=== PATIENT | female | born 1955 | race Two or more races ===

== ENCOUNTER 2025-02-27 08:17 | Outpatient (REF) | payer MEDICARE, SELFPAY ==
[2025-02-27 13:31] LABS: MANUAL DIFF FLAG NO
[2025-02-27 13:37] LABS: Hematocrit 40.8 % (37.0-47.0); Hemoglobin 13.1 g/dl (12.0-16.0); Imm Gran Abs Auto 0.03 X10*3/uL (0.00-0.03); Imm Gran Pct Auto 0.3 % (0.0-0.4); Lymphocytes Absolute Auto 3.0 X10*3/uL (1.2-4.9); Mean Corpuscular HGB Conc 32.1 g/dl (31.0-35.0); Mean Corpuscular Hemoglobin 27.2 pg (27.0-33.0); Mean Corpuscular Volume 84.8 fL (80.0-98.0); NRBC Abs Auto 0.000 X10*3/uL (0.0-0.012); NRBC Pct Auto 0.0 /100WBC (0.0-0.2); Platelet Count 273 X10*3/uL (160-400); Red Blood Count 4.81 X10*6/uL (4.20-5.50); White Blood Count 8.6 X10*3/uL (4.8-10.8)
[2025-02-27 13:55] LABS: Alanine Aminotransferase 38 U/L (0-31); Albumin Level 4.3 g/dL (3.5-5.0); Alkaline Phosphatase 108 U/L (39-117); Anion Gap 11 (12-20); Aspartate Amino Transferase 33 U/L (5-31); Blood Urea Nitrogen 11 mg/dL (9-16); Calcium 9.8 mg/dL (8.4-10.2); Carbon Dioxide 29 mmol/L (22-29); Chloride 108 mmol/L (96-108); Estimated Glomerular Filt Rate > 60; Potassium 4.3 mmol/L (3.3-5.1); Sodium 144 mmol/L (135-145); Total Protein 7.4 g/dL (6.5-8.0)
== END 2025-02-27 08:18 | disposition home or self-care (01) ==
LOC: HO.HKASLDS 08:17
PROVIDERS: PCP Internal Medicine; Visit Provider Nurse Practitioner Family
DX: G43.709 Chronic migraine without aura, not intractable, without status migrainosus (principal); D72.829 Elevated white blood cell count, unspecified; I61.9 Nontraumatic intracerebral hemorrhage, unspecified; R90.82 White matter disease, unspecified; F41.8 Other specified anxiety disorders; Z79.899 Other long term (current) drug therapy
CPT/HCPCS: 36415; 80053; 85025; 99202

== ENCOUNTER 2025-02-27 08:17 | Outpatient (AMB) | payer MEDICARE, SELFPAY ==
[2025-02-27 08:21] VITALS: BP 118/78; PULSE 77; O2SAT 95; BMI 30.1
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
--- OUTSIDE RECORDS SUMMARY | 2025-02-27 08:23 | XMS_ITS | Data Portability ---
Author Organization [facility], [address] Address [address] [place] [address] Care Team Providers Care Refrigeration Insulator Name Role Phone ISMAEL MONTESINOS Primary Care Provider Assessment No assessment recorded. Plan of Treatment Reminders Order Date Submit Date Provider Last Modified By Organization Details Last Modified Time Details Appointments None recorded. Lab None recorded. Referral None recorded. Procedures None recorded. Surgeries None recorded. Imaging None recorded. Medication Orders benzonatate 100 mg capsule 2022 023 [facility]/Pharmacy #[id number], [address] [place], [address], 3 11:00:37 prednisone 10 mg tablet 2022 023 [facility]/Pharmacy #[id number], [address] [place], [address], 3 11:34:38 Patient TargetsNo targets recorded. Patient Instructions Encounter Date Encounter Id Patient Instructions Last Modified By Organization Details Last Modified Time 08/25/2022 [id number] eustachian tube problems: care instructions [email or web address] Not available 08/25/2022 11:34:34 Based on your physical exam and presentation, you are being diagnosed with Eustachian Tube Dysfunction. This occurs when fluid/mucous or swelling closes off the tubes that help the ears equalize the pressure. The following are my recommendations to help with these symptoms and get this condition to resolve: 1. Saline Nasal [place] 2. Antihistamines like Claritin, Zyrtec, Olga Lidia, or benadryl 3. Tylenol for discomfort and help with the inflammation. 4. Heating pad or warm rice back to help with the discomfort 5. You can try sudafed, but I would not take this more than 5 days. This may overly dry out your throat and chest and cause symptoms. Unfortunately this condition may last 1-2 months, but usually resolve on its own. I am going to prescribe some medications to help resolve this faster. You were prescribed Prednisone - Here is some general Information regarding this medication. 1. Make sure you take with Food 2. Do not take right before bedtime -this should be taken during the day because it may make you a little more wired. May keep you from sleeping. 3. Prednisone will increase glucose -so if you are a diabetic then you will need to monitor your glucose closely. Please d/c if glucose goes above 300. 4. Do not take this medication with Ibuprofen If this does not improve in 2-3 months - an ENT would be the appropriate next step. Sometimes people will require Tubes to be placed temporarily. Thank you for using [facility], if you have any questions or concerns please do not hesitate to call or reach out to us. Not available 08/25/2022 11:34:33 Reason for Referral None Reported. Problems Name Problem SNOMED Code Status Onset Date Resolution Date Notes Provider Name and Address Organization Details Recorded Time Cerebrovascula r accident 069620780 Active 2022 SALVADOR faith PA - [facility] 3 11:16:31 Gastroesophage al reflux disease 642704946 Active 2022 SALVADOR faith PA - [facility] 3 11:16:43 Problem Notes None recorded. Procedures Surgical History Date Name Laterality Status Provider Name and Address Organization Details Recorded Time procedure on ovary completed SALVADOR HILTON PA - [facility] 08/25/2022 11:17:06 Imaging Results None recorded. Procedure Notes None recorded. Medical Equipment None Reported. Allergies No known drug allergies Medications Name Sig Start Date Stop Date Status Note LastModified by Organization Details LastModified Time atorvastatin 40 mg tablet TAKE 1 TABLET BY MOUTH EVERY DAY active Not Available Not Available No t Available prednisone 10 mg tablet PLEASE SEE ATTACHED FOR DETAILED DIRECTIONS active Not Available Not Available N ot Available ketorolac 0.5 % eye drops PLACE 1 DROP INTO AFFECTED EYE THREE TIMES A DAY STARTING 2 DAYS PRIOR SURGERY active Not Available Not Available No t Available famotidine 20 mg tablet active Not Available Not Available Not Available meclizine 25 mg tablet TAKE 1 TABLET BY MOUTH 3 TIMES DAILY NEEDED FOR DIZZINESS FOR UP TO 180 DAYS. active Not Available Not Available No t Available benzonatate 100 mg capsule TAKE 1 CAPSULE BY MOUTH THREE TIMES A DAY FOR 7 DAYS active Not Available Not Available N ot Available Gas Relief (simethicone ) 80 mg chewable tablet TAKE 1 TABLET BY MOUTH EVERY 8 HOURS NEEDED FOR FLATULENCE. active Not Available Not Available Not Available omeprazole 20 mg capsule,tyrone yed release TAKE 1 CAPSULE BY MOUTH EVERY DAY active Not Available Not Available No t Available fluoxetine 20 mg capsule TAKE 1 CAPSULE BY MOUTH EVERY DAY active Not Available Not Available No t Available mometasone 0.1 % topical cream active Not Available Not Available Not Available omeprazole active Not Available Not Av ailable Not Available Botox active Not Available Not Availa ble Not Available ProAir HFA 90 mcg/actuatio n aerosol inhaler INHALE 2 PUFFS INTO THE LUNGS EVERY 4 HOURS NEEDED FOR COUGH OR WHEEZING. active Not Available Not Available No t Available levocetirizi ne 5 mg tablet TAKE 1 TABLET BY MOUTH EVERY EVENING active Not Available Not Available No t Available Botox 200 unit injection active Not Available Not Available No t Available Olga Lidia Allergy active Not Available Not Available Not Available aspirin 81 mg capsule Take 1 capsule every day by oral route. active Not Available Not Available No t Available Vitals Date Recorded Body height Body mass index (BMI) Body weight Pain severity - 0-10 verbal numeric rating [Score] - Reported Body temperature Respiratory rate Heart rate Oxygen saturation Oxygen saturation in Arterial blood by Pulse oximetry Systolic And Diastolic Provider Name and Address Organization Details Last Updated DateTime 3 152.4 cm 26.4 kg/m2 59842.9 7 g 10 97 [degF] 16 /min 73 /min 97 % 97 % 140/82 mm[Hg] SALVADOR HILTON PA - [facility] 3 11:21:15 Date Recorded Body height Body mass index (BMI) Body weight Oxygen saturation Oxygen saturation in Arterial blood by Pulse oximetry Pain severity - 0-10 verbal numeric rating [Score] - Reported Heart rate Respiratory rate Body temperature Systolic And Diastolic Provider Name and Address Organization Details Last Updated DateTime 3 152.4 cm 26.4 kg/m2 74257.9 7 g 98 % 98 % 0 78 /min 18 /min 97.2 [degF] 117/69 mm[Hg] MUSA SAHU RA PA - [facility] 3 10:42:55 Social History Question Answer Notes LastModified by Organizat ion Details LastModified Time Tobacco Smoking Status Former Smoker SALVADOR DRINKWINE null, PA - [facility] 08/25/2022 11:18:22 When Did You Quit Smoking? 11-15yearssi chidi shaw Information not available 08/25/2022 Have You Recently Traveled Abroad? No Information not available 08/25/2022 Sex: Unknown Functional Status Question Answer Note LastModified by Organizat ion Details LastModified Time Do you use any illicit or recreational drugs? No Information not available 08/25/2022 Do you or have you ever used any other forms of tobacco or nicotine? No Information not available 08/25/2022 What is your level of alcohol consumption? None Information not available 08/25/2022 Mental Status None recorded. Family History Relationship Description Onset Age of this Age Resolved Age Notes LastModified by Organization Details LastModified Time Sister Malignant neoplastic disease [email or web address] Not available 08/25 11:17:59 Maternal Grandfather Malignant neoplastic disease [email or web address] Not available 08/25 11:17:59 Maternal Grandmother Malignant neoplastic disease [email or web address] Not available 08/25 11:17:59 Maternal Aunt Malignant neoplastic disease [email or web address] Not available 08/25 11:17:59 Medical History No medical history recorded. Gynecological HistoryNo gynecological history recorded. Obstetrics History GPAL:G 0 P 0 0 0 0 Immunizations Vaccine Type Date Status Note Provider Nam e and Address Organization Details Recorded Time Influenza, split virus, trivalent, preservative 0 completed SALVADOR DRINKWINE null, PA - [facility] 08/25/2022 11:18:31 Influenza, split virus, trivalent, preservative 9 completed SALVADOR DRINKWINE null, PA - [facility] 08/25/2022 11:18:31 Influenza, split virus, trivalent, preservative 3 completed SALVADOR DRINKWINE null, PA - [facility] 08/25/2022 11:18:31 Influenza, split virus, quadrivalent, PF 8 completed SALVADOR DRINKWINE null, PA - [facility] 08/25/2022 11:18:31 zoster recombinant 8 completed SALVADOR DRINKWINE null, PA - [facility] 08/25/2022 11:18:31 COVID-19, mRNA, LNP-S, PF, 30 mcg/0.3 mL dose 1 completed SALVADOR DRINKWINE null, PA - [facility] 08/25/2022 11:18:31 Tdap 1 completed SALVADOR DRINKWINE null, PA - [facility] 08/25/2022 11:18:31 Influenza, split virus, quadrivalent, PF 1 completed SALVADOR DRINKWINE null, PA - [facility] 08/25/2022 11:18:31 Influenza, split virus, trivalent, preservative 3 completed SALVADOR DRINKWINE null, PA - [facility] 08/25/2022 11:18:31 COVID-19, mRNA, LNP-S, PF, 30 mcg/0.3 mL dose 1 completed SALVADOR DRINKWINE null, PA - [facility] 08/25/2022 11:18:31 Influenza, split virus, trivalent, PF 6 completed SALVADOR DRINKWINE null, PA - [facility] 08/25/2022 11:18:31 Influenza, MDCK, quadrivalent, PF 0 completed SALVADOR DRINKWINE null, PA - [facility] 08/25/2022 11:18:31 Influenza, MDCK, quadrivalent, PF 8 completed SALVADOR DRINKWINE null, PA - [facility] 08/25/2022 11:18:31 Influenza, split virus, trivalent, preservative 1 completed SALVADOR DRINKWINE null, PA - [facility] 08/25/2022 11:18:31 Influenza, MDCK, quadrivalent, PF 9 completed SALVADOR DRINKWINE null, PA - [facility] 08/25/2022 11:18:31 Influenza, split virus, quadrivalent, PF 2 completed SALVADOR DRINKWINE null, PA - [facility] 08/25/2022 11:18:31 Influenza, split virus, trivalent, preservative 4 completed SALVADOR DRINKWINE null, PA - [facility] 08/25/2022 11:18:31 COVID-19, mRNA, LNP-S, PF, 30 mcg/0.3 mL dose 1 completed SALVADOR DRINKWINE null, PA - [facility] 08/25/2022 11:18:31 pneumococcal polysaccharide PPV23 8 completed SALVADOR DRINKWINE null, PA - [facility] 08/25/2022 11:18:31 Past Encounters Encounter ID Performer Location Encounter Start Date Encounter Closed Date Diagnosis/Indication Diagnosis SNOMED-CT Code Diagnosis ICD10 Code Diagnosis Note [id number] [address] [place] [address] 09/04/2019 14:33:09 09/04/2019 15:15:10 [id number] [address] [place] [address] 07/03/2020 14:57:49 07/03/2020 16:41:30 [id number] [address] [place] [address] 06/08/2017 11:08:28 06/08/2017 11:39:08 [id number] [address] [facility] [address] [place] [address] 10/01/2015 09:58:37 10/01/2015 10:22:59 [id number] [place] [address] 04/11/2017 15:17:29 04/11/2017 15:56:16 [id number] [facility] [address] [place] [address] 08/25/2022 11:01:38 08/25/2022 11:46:56 Dysfunction of right eustachian tube 9817388338 091751 H69.91 Start your Olga Lidia againStart you Nasal [place] again [id number] OMAR GORDON MD [address] [place] [address] 08/29/2022 09:49:46 08/29/2022 11:04:56 Persistent cough 759139085 R05.3 Pruritic rash 39190318 L 28.2 Benadryl Gel:Apply to affected area 3 times a day as needed for itching for 3-5 days. Health Concerns Section Related Observation LastModified by Organization Detai ls LastModified Time None Recorded Concern Status LastModified by Organization Details LastModified Time None Recorded Advance Directives Directive None Recorded Payers Insurance Date Sequence Insurance Name Policy Number Policy Ramirez Covered Member ID Ramirez Member ID Guarantor Name 08/29/2022 1 [facility] NET PLAN (MEDICAID HMO) [facility] Summer Hobbs [id number] Summer Hobbs 08/29/2022 2 [place] [facility] Summer Hobbs [id number] Summer Hobbs OBGyn Episode No OBEpisode recorded.
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
--- OUTSIDE RECORDS SUMMARY | 2025-02-27 08:23 | XMS_ITS | Clinical Summary ---
Author Organization [facility] Address [address] [place] [address] Care Team Providers Care Drapery Installer Name Role Phone KevinAsya mcmanus DDTammy Primary Care Provider Source Comments PLEASE NOTE, if this patient is a minor, it may be UNLAWFUL to discuss sensitive information that is contained in these records (such as FAMILY PLANNING, MENTAL HEALTH or SUBSTANCE ABUSE) with the minor patient's parent or other person without the patient's specific authorization.[facility] Medications No known medications Active Problems No known active problems Social History Tobacco Use Types Packs/Day Years Used Date Smoking Tobacco: Never Assessed Social Connections Answer Date Recorded Connectedness 0 04/21/2024 Financial Resource Strain Answer Date R ecorded Financial Resource Strain 0 2022 Stress Answer Date Recorded Stress 0 04/08/2023 Physical Activity Answer Date Recorded Physical Activity 0 04/08/2023 Food Insecurity Answer Date Recorded Food 0 04/27/2024 Transportation Needs Answer Date Record ed Transportation 0 04/08/2023 Housing Stability Answer Date Recorded Housing 0 04/08/2023 Safety and Environment Answer Date Chris rded Safety 0 04/08/2023 Utilities Answer Date Recorded Utilities 0 04/08/2023 Employment Answer Date Recorded Stress 0 04/21/2024 Comments Unknown Sex and Gender Information Value Date Recorded Sex Assigned at Not on file Legal Sex Female 10:23 AM PST Gender Identity Not on file Sexual Orientation Not on file Last Filed Vital Signs Vital Sign Reading Time Taken Comments Blood Pressure 125/90 05/11/2024 9:36 AM EDT Pulse 87 05/11/2024 9:36 AM EDT Temperature - - Respiratory Rate - - Oxygen Saturation - - Inhaled Oxygen Concentration - - Weight - - Height - - Body Mass Index - - Plan of Treatment Health Maintenance Due Date Last Done Comments Diabetes Screening 1955 Hepatitis C Screening 1955 Lipid Screening 1957 Tobacco Screening 1955 Breast Cancer Screening (Mammogram) 1997 CT Colonography 2002 Colonoscopy 2002 Colorectal Cancer Screening 2002 FIT/gFOBT 2002 Fecal DNA 2002 Flexible Sigmoidoscopy 2002 Imm-Zoster, Recombinant (2 of 2) 08/26/2018 07/01/20 18 Imm-Pneumococcal 50+ (2 of 2 - PCV) 08/30/2018 08/30/2017 Imm-DTaP/Tdap/Td (2 - Td or Tdap) 05/21/2021 011 Bone Density Screening 2022 Falls Prevention 2022 [id number] ( season) 2024 07/12/2021, 12/09/2020, 11/18/2020 Alcohol and Drug Screen 08/02/2024 Depression Annual Screen 08/02/2024 Imm-Influenza (#1) 2025 05/30/2022, 0 04/03/2021, 05/30/2020, Additional history exists Hypertension Screening (#1) 05/11/2025 Insurance GENERIC - DENTAL Care Teams Drapery Installer Relationship Specialty Start Date End Date Asya Peres DDS [address] [place] [address] PCP - General Dentist 07/08/19
--- OUTSIDE RECORDS SUMMARY | 2025-02-27 08:24 | XMS_ITS ---
Author Name [facility] Organization Unknown Care Team Organization Name Specialty Phone Email Start Date End Da te [facility] 06/09/2022 03/20/2024
--- OUTSIDE RECORDS SUMMARY | 2025-02-27 08:24 | XMS_ITS | Clinical Summary ---
Author Organization [facility] Address [address] [place] [address] Care Team Providers Care Water Purifier Name Role Phone Hiwot Dover MD Primary Care Provider [phone] Allergies No known active allergies Medications Fexofenadine HCl (LYLY ALLERGY) 180 MG Tab 1 TABLET DAILY Active Omeprazole Magnesium (PRILOSEC) 10 MG Pack 2 PACKETS DAILY Active ALBUTEROL SULFATE (PROAIR HFA) 108 (90 BASE) MCG/ACT Aero Soln None Entered Active FLUTICASONE PROPIONATE, NASAL, (FLONASE) 50 MCG/ACT Suspension None Entered Active Gabapentin 300 MG Cap 1 CAPSULE 3 TIMES DAILY Active Active Problems No known active problems Social History Tobacco Use Types Packs/Day Years Used Date Smoking Tobacco: Never Assessed Comments No Sex and Gender Information Value Date Recorded Sex Assigned at Not on file Legal Sex Female 11:10 AM EST Gender Identity Not on file Sexual Orientation Not on file Last Filed Vital Signs Vital Sign Reading Time Taken Comments Blood Pressure 120/79 05/03/2015 10:[address] and[facility] Pulse 75 05/03/2015 10:12 AM EDT Temperature 37 C (98.6 F) 05/03/2015 10:11 AM EDT Respiratory Rate 16 05/03/2015 10:11 AM EDT Oxygen Saturation 100% 05/03/2015 10:10 AM EDT Inhaled Oxygen Concentration - - Weight 55.3 kg (122 lb) 05/03/2015 10:10 AM EDT Height 149.9 cm (4' 11 ) 05/03/2015 10:10 AM EDT Body Mass Index 24.64 05/03/2015 10:10 AM EDT Plan of Treatment Health Maintenance Due Date Last Done Comments Hepatitis C Screening 1955 DTaP/Tdap/Td (1 - Tdap) 10/15/1975 Mammogram/Breast Imaging 1997 Pneumococcal 50+ years (1 of 1 - PCV) 10/15/2007 Zoster (Shingrix) (1 of 2) 10/15/2007 Bone Density 2022 COVID-19 Vaccine (1 - 2023-2 5 season) 2024 Influenza (#1) 2025 RSV (1 - 1-dose 75+ series) 2032 HPV Vaccine (No Doses Required) Completed Hep A Aged Out No longer eligi ble based on patient's age to complete this topic Hep B Aged Out No longer eligi ble based on patient's age to complete this topic Hib Aged Out No longer eligi ble based on patient's age to complete this topic Meningococcal ACWY Aged Out No longer eligible based on patient's age to complete this topic Pap Smear Discontinued Zoster (Zostavax) Discontinued Insurance Care Teams Water Purifier Relationship Specialty Start Date End Date Hiwot Dover MD [address] [place] [id number] PCP - General Internal Medicine 05/03/15
== END 2025-02-27 10:14 | disposition home or self-care (01) ==
LOC: HO.HSMS 08:17
PROVIDERS: PCP Internal Medicine; Visit Provider Nurse Practitioner Family
DX: R51.9 Headache, unspecified (principal); R90.82 White matter disease, unspecified; I61.9 Nontraumatic intracerebral hemorrhage, unspecified; G43.709 Chronic migraine without aura, not intractable, without status migrainosus
CPT/HCPCS: 99204

== ENCOUNTER 2025-05-15 08:01 | Outpatient (AMB) | payer MEDICARE, MEDICAID, SELFPAY ==
--- OUTSIDE RECORDS SUMMARY | 2025-05-15 08:04 | XMS_ITS | Encounter Summary ---
Author Organization [facility] Address [address] [place] [address] Care Team Providers Care Vault Maker Name Role Phone Kathy Fuchs MD Primary Care Provider [phone] Encounter Details Date Type Department Care Team (Late Contact Info) Description 05/04/2025 Results Follow-Up Internal Medicine - [facility] [address] [place] [address] Maribeth Farr MA Social History Tobacco Use Types Packs/Day Years Used Date Smoking Tobacco: Former Cigarettes 1.7 38 0 08/02/1972 - 08/02/2010 Smokeless Tobacco: Never Alcohol Use Standard Drinks/Week Comments No 0 (1 standard drink = 0.6 oz pur e alcohol) Comments No Sex and Gender Information Value Date Recorded Sex Assigned at Female 04/23/2025 10:33 AM EDT Legal Sex Female 2:26 PM EST Gender Identity Not on file Sexual Orientation Not on file documented as of this encounter Plan of Treatment Upcoming Encounters Date Type Department Care Team (Late Contact Info) Description 06/02/2025 8:45 AM EDT Appointment [facility] Scan [address] [place] [phone] 10/02/2025 1:00 PM EST [facility] [address] [place] [address] Kathy Fuchs MD [address] [place] [address] 12/18/2025 11:30 AM EDT [facility] [address] [facility] [place] [phone] Kathy Fuchs MD [address] [facility] [place] documented as of this encounter Visit Diagnoses Not on filedocumented in this encounter Care Teams Vault Maker Relationship Specialty Start Date End Date Kathy Fuchs MD [address] [facility] [place] PCP - General Internal Medicine 03/01/25 documented as of this encounter
--- OUTSIDE RECORDS SUMMARY | 2025-05-15 08:04 | XMS_ITS | Encounter Summary ---
Author Organization [facility] Address [address] [place] [address] Care Team Providers Care Sanitation Inspector Name Role Phone Kathy Fuchs MD Primary Care Provider [phone] Encounter Details Date Type Department Care Team (Late st Contact Info) Description 05/14/2025 Telephone Lung Screening Program - [address] [phone] Leelee Camarena MA Social History Tobacco Use Types Packs/Day [...] on file documented as of this encounter Progress Notes * Leelee Camarena MA - 05/14/2025 3:51 PM EDT Summer Hobbs was contacted by the Lung Cancer Screening Program today to confirm the appointment of their Lung Cancer Screening. The patient is currently scheduled to have their screening on Monday June 02, 2025 at 845 AM at [facility]. Patient confirmed. For all screenings scheduled during the week, the patient will check in at Patient Registration on the first floor of the main hospital. For screenings that take place on the weekend or after 5pm, check-in directly in Radiology. The patient was given the Lung Cancer Screening Program phone number, , to contact if they have any additional questions, concerns or need to reschedule. Patients are encouraged to call our office and reschedule if they are exhibiting any cold-like symptoms, have recently been treated for Pneumonia or Influenza (the flu) or have had another CT of their Chest since their last screening. documented in this encounter Plan of Treatment Upcoming Encounters Date Type Department Care Team (Late st Contact Info) Description 06/02/2025 8:45 AM EDT Appointment [facility] CT Scan [address] [place] [phone] 10/02/2025 1:00 PM EST Office Visit Internal Medicine - [address] [phone] Kathy Fuchs MD [address] [place] [address] 12/18/2025 11:30 AM EDT [facility] [address] [place] [address] Kathy Fuchs MD [address] [place] [address] documented as of this encounter Visit Diagnoses Not on filedocumented in this encounter Care Teams Sanitation Inspector Relationship Specialty Start Date End Date Kathy Fuchs MD [address] [place], [place] [address] PCP - General Internal Medicine 03/01/25 documented as of this encounter
--- OUTSIDE RECORDS SUMMARY | 2025-05-15 08:04 | XMS_ITS | Clinical Summary ---
Author Organization [facility] Address [address] [place] [address] Care Team Providers Care Sales Officer Name Role Phone KevinAsya mcmanus ADOLFO Primary Care Provider Source Comments PLEASE NOTE, [...] Bone Density Screening 2022 Falls Prevention 2022 Alcohol and Drug Screen 08/02/2024 Depression Annual Screen 08/02/2024 [id number] ( season) 2025 07/12/2021, 12/09/2020, 11/18/2020 Imm-Influenza (#1) 2025 05/30/2022, 0 04/03/2021, 05/30/2020, Additional history exists Hypertension Screening (#1) 05/11/2025 Insurance GENERIC - DENTAL Care Teams Sales Officer Relationship Specialty Start Date End Date Asya Peres DDS [address] [place] [address] PCP - General Dentist 07/08/19
--- OUTSIDE RECORDS SUMMARY | 2025-05-15 08:04 | XMS_ITS | Clinical Summary ---
Author Organization [facility] Address [address] [place] [address] Care Team Providers Care Docket Specialist Name Role Phone Kathy Fuchs MD Primary Care Provider [phone] Allergies Active Allergy Reactions Criticality Noted Date Comments Cat Dander 06/20/2009 Milk 06/20/2009 Medications albuterol HFA (PROAIR HFA ; PROVENTIL HFA ; VENTOLIN HFA) 90 mcg/actuation inhaler Inhale 2 Puffs into the lungs every 4 hours as needed for Cough or Wheezing. 12/27/19 22 Active bisacodyL (DULCOLAX) 5 mg EC tablet Take 2 tabs at 6pm as directed. 10/08/19 24 Active levocetirizine (XYZAL) 5 mg tablet Take 1 tablet (5 mg total) by mouth 1 (one) time each day in the evening. 03/16/20 23 Active meclizine (ANTIVERT) 25 mg tablet Take 1 tablet (25 mg total) by mouth 3 (three) times a day if needed for dizziness. 03/30/20 24 Active ondansetron ODT (ZOFRAN-ODT) 4 mg disintegrating tablet Take 1 tablet (4 mg total) by mouth. 05/20/20 23 Active polyethylene glycol (GoLYTELY) 236-22.74-6.74 -5.86 gram solution Take 4,000 mL by mouth. 10/08/19 24 Active atorvastatin (LIPITOR) 40 mg tablet TAKE 1 TABLET BY MOUTH EVERY DAY 90 tablet 1 01/27/20 25 Active aspirin-acetamino phen-caffeine (EXCEDRIN MIGRAINE) 250-250-65 mg per tablet Take 1 tablet by mouth 2 (two) times a day. 180 tablet 3 04/03/20 25 Active omeprazole (PriLOSEC) [address] capsuleIndication s:Gastro-esophage al reflux disease without esophagitis Take 1 capsule (40 mg total) by mouth 1 (one) time each day. 90 capsule 1 04/20/20 25 Active riboflavin (VITAMIN B2) 400 mg tablet TAKE 1 TABLET BY MOUTH 1 TIME EACH DAY. 90 tablet 05/08/20 25 Active omeprazole (PriLOSEC) [address] capsuleIndication s:Gastro-esophage al reflux disease without esophagitis TAKE 1 CAPSULE BY MOUTH EVERY DAY 30 capsule 03/01/20 25 025 Discontinued(Re order) riboflavin (VITAMIN B2) 400 mg tablet Take 1 tablet (400 mg total) by mouth 1 (one) time each day. 03/20/20 25 025 Discontinued(Re order) riboflavin (VITAMIN B2) 400 mg tablet Take 1 tablet (400 mg total) by mouth 1 (one) time each day. 90 tablet 04/20/20 25 025 Discontinued Active Problems Problem Noted Date Diagnosed Date Environmental and seasonal allergies 04/03/2025 Other headache syndrome 04/03/2025 Brain ischemia 04/03/2025 Mixed stress and urge urinary incontinence 12/10 [...] colonoscopy dr de la torre tubular adenoma Resolved Problems Problem Noted Date Diagnosed Date Resolved Date History of COVID-19 08/05/2021 04/03/20 25 Overview (06/08/2024): Home tested 08/05/21 Encounters Date Type Department Care Team Description 05/14/2025 Telephone Lung Screening Program - [place] [address] [address] Leelee Camarena [place] 05/04/2025 Results Follow-Up Internal Medicine - [facility] [address] [place] [address] Maribeth Farr MA 04/26/2025 1:06 PM EDT - 04/26/2025 11:59 PM EDT [facility] [address] [address] Encounter for screening mammogram for malignant neoplasm of breast Discharge Disposition: Home or Self Care 04/03/2025 1:30 PM EDT Office Visit Internal Medicine - [facility] [address] [place] [address] Linda Maddox NP Asthmatic bronchitis , chronic (CMS/HCC V24, CMS/HCC V28) (Primary Dx); Mixed hyperlipidemia; Environmental and seasonal allergies; Gastroesophageal reflux disease without esophagitis; Pulmonary nodules; Depression, unspecified depression type; Mixed stress and urge urinary incontinence; Encounter for screening mammogram for malignant neoplasm of breast; Brain ischemia 03/06/2025 11:31 AM EDT - 03/06/2025 11:59 PM EDT Hospital Encounter [facility] MRI [address] [place] [address] Headache Discharge Disposition: Home or Self Care from Last 3 Months Immunizations Immunization Administration Dates Next Due Influenza Quadravalent, MDCK [...] Surgery Date Site/Laterality Comments OOPHORECTOMY 1998 PROCEDURE: MI OOPHORECTOMY PARTIAL/TOTAL UNI/BI; COMMENT: left ovary removed due to bleeding, not cancer OTHER SURGICAL HISTORY 1993 PROCEDURE: [place] BIOPSY SOFT TISSUE BACK/FLANK DEEP; COMMENT: cyst [...] Name Comments Other: healthy as of 08/2017 Brothnancy Frias No Known Problems Father he left [facility] when pt was a baby Other cancer Maternal Grandfather skin Other: broncitis Maternal Grandmother Stroke Mother Thyroid disease Mother Other cancer Paternal Grandfather throat Lung cancer Sister Cynthia had surgery and survived as of 2018 Obesity Son 1 Gooden born 1976 Asthma Son 2 Federico born 1979 Relation Name Status Comments Brothnancy Frias Alive Father Alive Maternal Grandfather Maternal Grandmother Mother Alive Paternal Grandfather Paternal Grandmother Sister Cynthia Alive Son 1 Gooden Alive Son 2 Federico Alive Social History Tobacco Use Types Packs/Day Years Used Date Smoking Tobacco: Former Cigarettes 1.7 38 0 08/02/1972 - 08/02/2010 Smokeless Tobacco: Never Tobacco Cessation:Counseling Given: Not Answered Alcohol Use Standard Drinks/Week Comments No 0 (1 standard drink = 0.6 oz pur e alcohol) Comments No Sex and Gender Information Value Date Recorded Sex Assigned at Female 04/23/2025 10:33 AM EDT Legal Sex Female 2:26 PM EST Gender Identity Not on file Sexual Orientation Not on file Obstetrics History Para Term AB IAB SAB Ectopic Multiple Livin g Live Births 2 Last Filed Vital Signs Vital Sign Reading Time Taken Comments Blood Pressure 110/70 04/03/2025 2:12 PM EDT Pulse 73 04/03/2025 1:50 PM EDT Temperature 36.4 C (97.6 F) 04/03/2025 1:50 PM EDT Respiratory Rate 16 07/20/2024 2:09 PM EST Oxygen Saturation 94% 07/20/2024 4:41 PM EST Inhaled Oxygen Concentration - - Weight 68.5 kg (151 lb) 04/26/2025 1:33 PM EDT Height 152.4 cm (5') 04/26/2025 1:33 PM EDT Body Mass Index 29.49 04/26/2025 1:33 PM EDT Plan of Treatment Upcoming Encounters Date Type Department Care Team (Late st Contact Info) Description 06/02/2025 8:45 AM EDT Appointment [facility] CT Scan [address] [place] [address] 10/02/2025 1:00 PM EST Office Visit Internal Medicine - [facility] [address] [place] [phone] Kathy Fuchs MD [facility] [place] 12/18/2025 11:30 AM EDT Office Visit Internal Medicine - [facility] [place] [phone] Kathy Fuchs MD [address] [facility] [place] Health Maintenance Due Date Last Done Comments Cervical Cancer Screening: HPV 03/23/2018 03/23/2013 Zoster Vaccines (2 of 2) 08/26/2018 07/01/2018 Medicare Annual Wellness Visit 07/11/2022 Osteoporosis Screening (Bone Density Screening) 07/11/2022 Social Influencers of Health Screening 07/11/2022 Falls Risk Assessment 2022 Colorectal Cancer Screening: Colonoscopy 11/11/2022 11/11/2017, 11/11/2017 Depression Screening 08/02/2024 05/04/2024 COVID-19 Vaccine ( season) 2025 07/12/2021, 12/09/2020, 11/18/2020 Influenza Vaccine (#1) 2025 , 06/02/2023, 05/30/2022, Additional history exists Lung Cancer Screening (Low Dose CT) 06/02/2025 06/02/2024, 06/01/2024, 06/04/2023, Additional history exists Cholesterol Screening (Lipid Panel) 12/19/2026 12/19/2021 Breast Cancer Screening 04/26/2027 04/26/2025, 08/09 DTaP,Tdap,and Td Vaccines (3 - Td or Tdap) 03/16/2033 03/16/2023, 05/21/2011 Hepatitis C Screening Completed 04/08/2013 Pneumococcal Vaccine: 50+ Years Completed 03/16/2023, 08/30/2017 RSV Immunization Adult Patients Completed 08/29/2024 HIB Vaccines Aged Out No longer eligi [...] Procedure Name Priority Date/Time Associated Diagnosis Comments MG MAMMO DIGITAL SCREENING W LEWIS BILAT Routine 04/26/2025 1:38 PM EDT Encounter for screening mammogram for malignant neoplasm of breast MR BRAIN WO AND W CONTRAST Routine 03/06/2025 12:39 PM EDT Headache EXTERNAL LUNG CANCER SCREENING DOSE CT 06/02/2024 DEPRESSION SCREENING Routine 05/04/2024 LIPID PANEL Routine 12/19/2021 COLONOSCOPY Routine 11/11/2017 HEPATITIS C SCREENING Routine 04/08/2013 HPV Routine 03/23/2013 from Last 3 Months or Most Recently Relevant to Health Maintenance Results * MG Mammo Digital Screening w Lewis bilat (04/26/2025 1:38 PM EDT) Anatomical Region Laterality Modality Breast Bilateral Mammography 04/26/2025 1:42 PM EDT Impressions 04/26/2025 1:46 PM EDT No mammographic evidence of malignancy. No suspicious interval change. A negative mammogram in the presence of a clinically suspicious palpable abnormality does not preclude the possibility of malignancy or alter the indications for biopsy. ASSESSMENT: BI-RADS 1: NEGATIVE RECOMMENDATION(S): 1: Routine screening mammogram BILATERAL in 1 year. [facility] [address], [address] -------- FINAL REPORT -------- Dictated By: Scot Cody Dictated Date: 04/26/2025 13:42 ET Assigned Physician: Scot Cody Reviewed and Electronically Signed By: Scot Cody Signed Date: 04/26/2025 13:46 ET Workstation ID: [id number] Transcribed By: Self Edit Transcribed Date: 04/26/2025 13:42 ET Narrative 04/26/2025 1:46 PM EDT EXAM: SCREENING MAMMOGRAPHY, BILATERAL HISTORY: SCREENING. No additional history. COMPARISON: 03/22/20 08/09/17 TECHNIQUE: Synthesized CC and MLO projections of each breast. Tomosynthesis of each breast in the CC and MLO projections. ADDITIONAL IMAGING: None Computer-aided detection was employed with the [employer] AI 3-D. TISSUE DENSITY: There are scattered areas of fibroglandular density. (BI-RADS category B) FINDINGS: RIGHT BREAST: No suspicious mass. No suspicious calcification. No distortion. No additional suspicious right breast findings LEFT BREAST: No suspicious mass. No suspicious calcification. No distortion. No additional suspicious left breast findings Procedure Note Scot Cody MD - 04/26/2025 EXAM: SCREENING MAMMOGRAPHY, BILATERAL HISTORY: SCREENING. No additional history. COMPARISON: 03/22/20 08/09/17 TECHNIQUE: Synthesized CC and MLO projections of each breast.Tomosynthesis of each breast in the CC and MLO projections. ADDITIONAL IMAGING: None Computer-aided detection was employed with the [employer] AI 3-D. TISSUE DENSITY: There are scattered areas of fibroglandular density.(BI-RADS category B) FINDINGS: RIGHT BREAST: No suspicious mass. No suspicious calcification. No distortion. Noadditional suspicious right breast findings LEFT BREAST: No suspicious mass. No suspicious calcification. No distortion. Noadditional suspicious left breast findings IMPRESSION: No mammographic evidence of malignancy. No suspicious interval change. A negative mammogram in the presence of a clinically suspicious palpableabnormality does not preclude the possibility of malignancy or alter theindications for biopsy. ASSESSMENT: BI-RADS 1: NEGATIVE RECOMMENDATION(S): 1: Routine screening mammogram BILATERAL in 1 year. [facility] location[facility] at [address], [address] -------- FINAL REPORT -------- Dictated By: Scot Cody Dictated Date: 04/26/2025 13:42 ET Assigned Physician: Scot Cody Reviewed and Electronically Signed By: Scot Cody Signed Date: 04/26/2025 13:46 ET Workstation ID: [id number] Transcribed By: Self Edit Transcribed Date: 04/26/2025 13:42 ET us Linda Barnard NP IMG BI PROCEDURES Final Resu lt * MR Brain wo and w Contrast (03/06/2025 12:39 PM EDT) Anatomical Region Laterality Modality Head and Neck Magnetic Resonan ce 03/06/2025 5:36 PM EDT Impressions 03/06/2025 5:58 PM EDT No significant change compared to 2019. No mass, hemorrhage or infarct. Stable severe confluent periventricular white matter lesions. -------- FINAL REPORT -------- Dictated By: Niesha Adams Dictated Date: 03/06/2025 17:36 ET Assigned Physician: Niesha Adams Reviewed and Electronically Signed By: Niesha Adams Signed Date: 03/06/2025 17:58 ET Workstation ID: [id number] Transcribed By: Self Edit Transcribed Date: 03/06/2025 17:36 ET Narrative 03/06/2025 5:58 PM EDT HISTORY: melton's. TECHNIQUE: Routine MRI of the brain with and without contrast. Contrast: 15mL Dotarem COMPARISON: 12/04/2019 FINDINGS: No acute territorial infarct, mass effect, or intracranial hemorrhage. Extensive confluent periventricular and subcortical white matter T2/FLAIR hyperintensities are most likely related to chronic small vessel ischemic change. These are stable compared to 2020. No abnormal enhancement. No hydrocephalus. Visualized paranasal sinuses are clear. Mastoid air cells are clear. No calvarial fracture. Pseudophakia. Procedure Note Niesha Adams MD - 03/06/2025 HISTORY: melton's. TECHNIQUE: Routine MRI of the brain with and without contrast. Contrast: 15mL Dotarem COMPARISON: 12/04/2019 FINDINGS: No acute territorial infarct, mass effect, or intracranial hemorrhage. Extensive confluent periventricular and subcortical white matter T2/FLAIRhyperintensities are most likely related to chronic small vessel ischemicchange. These are stable compared to 2020. No abnormal enhancement. No hydrocephalus. Visualized paranasal sinuses are clear. Mastoid air cells are clear. No calvarial fracture. Pseudophakia. IMPRESSION: No significant change compared to 2020. No mass, hemorrhage or infarct.Stable severe confluent periventricular white matter lesions. -------- FINAL REPORT -------- Dictated By: Niesha Adams Dictated Date: 03/06/2025 17:36 ET Assigned Physician: Niesha Adams Reviewed and Electronically Signed By: Niesha Adams Signed Date: 03/06/2025 17:58 ET Workstation ID: [id number] Transcribed By: Self Edit Transcribed Date: 03/06/2025 17:36 ET [place] DIAGNOSTIC RADIOLOGIC TECHNOLOGIST IMG MRI PROCEDURES Final Result * External Lung Cancer Screening Report (06/02/2024) Anatomical Region Laterality Modality Computed Tomogra phy Provider Onbase IMG CT PROCEDURES Final Resul t * Depression Screening (05/04/2024) Pathologist [facility] Depression Screening abstracted Historical Provider HEALTH MAINTENANCE Final Result * (ABNORMAL) Lipid panel (12/19/2021) LDL/HDL Ratio 3 0 - 4 Triglycerides 186(A) 0 - 150 mg/dL Cholesterol 149 0 - 200 mg/dL HDL 45 >=40 mg/dL LDL Cholesterol 67 0 - 100 mg/dL Blood Venous blood specimen / Unknown Historical Provider LAB BLOOD ORDERABLES Clair l Result * Colonoscopy (11/11/2017) Pathologist [facility] Colonoscopy abstracted, no interpretation Anatomical Region Laterality Modality Other [facility] Provider HEALTH MAINTENANCE Final Result * Hepatitis C Screening (04/08/2013) [facility] Hepatitis C Screening abstracted [facility] Provider HEALTH MAINTENANCE Final Result * Cervical Cancer Screening: HPV (03/23/2013) [facility] Cervical Cancer Screening: HPV abstracted, negative [facility] Provider HEALTH MAINTENANCE Final Result from Last 3 Months or Most Recently Relevant to Health Maintenance Insurance [employer] MEDICARE MEDICAID - [place] Care Teams Docket Specialist Relationship Specialty Start Date End Date Kathy Fuchs MD [address] [facility] [place] [address] PCP - General Internal Medicine 03/01/25
--- OUTSIDE RECORDS SUMMARY | 2025-05-15 08:04 | XMS_ITS | Clinical Summary ---
Author Organization [facility] Address [address] [place] [address] Care Team Providers Care Electromechanic Name Role Phone Hiwot Dover MD Primary Care Provider [phone] Allergies No known active allergies Medications Fexofenadine [...] Bone Density 2022 COVID-19 Vaccine (1 - 2024-2 6 season) 2025 Influenza (#1) 2025 RSV (1 - 1-dose [...] Discontinued Zoster (Zostavax) Discontinued Insurance Care Teams Electromechanic Relationship Specialty Start Date End Date Hiwot Dover MD [address] [place] [phone] PCP - General Internal Medicine 05/03/15
--- OUTSIDE RECORDS SUMMARY | 2025-05-15 08:05 | XMS_ITS | Encounter Summary ---
Author Organization [facility] Address [address] [place] [address] Care Team Providers Care Bilingual Sales Representative Name Role Phone Hiwot Dover MD Primary Care Provider [phone] Encounter Details Date Type Department Care Team ([facility] Contact Info) Description 05/03/2015 Orders Only [facility] [address] [place] [address] Rayna Alford NP Social History Tobacco Use Types Packs/Day Years Used Date Smoking Tobacco: Never Assessed Comments No Sex and Gender Information Value Date Recorded Sex Assigned at Not on file Legal Sex Female 11:10 AM EST Gender Identity Not on file Sexual Orientation Not on file documented as of this encounter Plan of Treatment Not on file documented as of this encounter Procedures * Due to [place] F[place] law, this organization might not be sharing negative HIV tests. Procedure Name Priority Date/Time Associated Diagnosis Comments EKG-USE ONLY IN [facility]YMED/OCC MED/CARDIO Routine 05/03/2015 10:50 AM EDT Dizziness documented in this encounter Results * Due to [place] law, this organization might not be sharing negative HIV tests. * EKG-USE ONLY IN URGENT CARE/[facility]/OCC MED/SMG/CARDIO OR AGE <18 (05/03/2015 10:50 AM EDT) VENTRICULAR RATE 63 BPM MUS E EKG SYSTEM ATRIAL RATE 63 BPM MUSE EKG SYSTEM P-R INTERVAL 156 ms MUSE EK G SYSTEM QRS DURATION 80 ms MUSE EK G SYSTEM QT 428 ms MUSE EKG SYSTEM QTC 437 ms MUSE EKG SYSTEM P AXIS 7 degrees MUSE EKG SYSTEM R AXIS 45 degrees MUSE EKG SYSTEM T AXIS 47 degrees MUSE EKG SYSTEM EKG INTERPRETATION Normal sinus rhythm Normal ECG No previous ECGs available MUSE EKG SYSTEM 05/03/2015 10:5 0 AM EDT 05/03/2015 2:00 PM EDT us Susi Paul MD CARDIOVASCULAR-WITH INBSK T RTG Final Result MUSE EKG SYSTEM documented in this encounter Visit Diagnoses Diagnosis Dizziness Dizziness and giddiness documented in this encounter Care Teams Bilingual Sales Representative Relationship Specialty Start Date End Date Hiwot Dover MD [address] [place] [id number] PCP - General Internal Medicine 05/03/15 documented as of this encounter
--- NOTE | 2025-05-15 09:54 | A.OFFVIS_ITS ---
Vital Signs 05/15/25 09:56 Height 5 ft Weight 152 lb 8 oz BMI 29.8 BP 120/82 Blood Pressure Location Lt brachial Position Sitting Pulse 97 Pulse Source Pulse Oximeter Pulse Oximetry (%) 96 Oxygen Delivery Method Room Air Intake Visit Reasons: Botox Intake Note: Botox 200 pt supplied Pharmacy District Manager Required: No Accompanied by: Self / Same As Patient Allergies cat dander Allergy (Unknown, Verified 05/15/25 09:54) Unknown house dust Allergy (Unknown, Verified 05/15/25 09:54) Unknown milk Allergy (Unknown, Verified 05/15/25 09:54) Unknown HPI Comments Details: ? 69y/o female comes for treatment of migraines with botox. ??? Most frequent reported adverse reactions following injection of botox for chronic migraine include neck pain (9%), headache(5%), eyelid ptosis(4%), migraine(4%), muscular weakness(4%), musculuskeletal stiffness(4%), bronchitis(3%), injection site pain (3%), musculoskeletal pain(3%), myalgia(3%), facial paresis(2%), HTN(2%) and muscle spasms(2%) were discussed in detail. How many migraine days prior to botox 25 How long do the migraines last1-2 days Intensity of migraine 05/11 ER visits related to migraine Effectiveness of botox from last?two?treatment(s)( this is her first treatment here ) How many migraine days since receiving treatment: Change? in intensity of migraine? Change in frequency of migraine? Change in use of acute medication for migraine? Change in quality of life? ER visits related to migraine? Explanation for any gaps in treatment Have at least three months elapsed since last treatment (Last botox date - frequency of injections) ??? Botulinum toxin typeA 200units Lot no [id number] expiration Jun 2027 was diluted with 4 cc of normal saline . ??? Muscles injected- ??? Frontalis 4 sites ??? Procerus 1 site ??? Wall Man- 2 sites ??? Temporalis- 8 sites ??? Occipitalis- 6 sites ??? Cervical paraspinals- 4 sites ??? Trapezius- 6 sites- 10 units each ??? 5 units each in 31 site ??? Total use- 185units ??? Discarded-15units PFSH Medical History (Updated 02/27/25 @ 10:16 by GINNA Gil) Elevated WBC count Former smoker GERD (gastroesophageal reflux disease) Hematuria Asthmatic bronchitis Depression RSD upper limb Family history of lung cancer Pulmonary nodule Colon polyp Mixed stress and urge incontinence CVA (cerebrovascular accident due to intracerebral hemorrhage) COVID-19 Physical Exam Vital Signs: Last Vital Signs Pulse 97 05/15/25 09:56 BP 120/82 05/15/25 09:56 Pulse Ox 96 05/15/25 09:56 Oxygen Delivery Method Room Air 05/15/25 09:56 BMI result Body Mass Index 29.8 Office Procedures Botulinum toxin Injection 29639 - Migraine Procedure code (CPT) selection complete Office Meds onabotulinumtoxinA 200 unit solution for injection Performing Provider: Corinna Gary MD Performing Location: [facility] Administered by: Corinna Gary MD on 05/15/25 10:31 Dose Route Admin Location Dispensed Lot Number Expiration Date [facility] Gum Dipper 185 unit subcut 200 units [id number] [employer] /BOTOX Total Dispensed Waste 200 units 7.5 % Comments: see HPI Assessment & Plan Assessment & Plan (1) Chronic migraine without aura without status migrainosus, not intractable: Code(s): G43.709 - Chronic migraine without aura, not intractable, without status migrainosus Category: Medical Plan Patient tolerated the procedure well she will call with any side effects Orders: Orders AMB Botulinum toxin Injection - Patient Supplied N/C Today G43.709 - Chronic migraine without aura, not intractable, without status migrainosus Coding Level of Care Code Est Pt Level 1 (86153) Diagnoses Chronic migraine without aura without status migrainosus, not intractable G43.709 CPT Codes Botox Injection - Botox 3: 40148 - Migraine ([id number])
[2025-05-15 09:56] VITALS: BP 120/82; PULSE 97; O2SAT 96; BMI 29.8
== END 2025-05-15 10:51 | disposition home or self-care (01) ==
LOC: HO.HSMS 08:02
PROVIDERS: PCP Internal Medicine; Visit Provider Psychiatry & Neurology Neurology
DX: G43.709 Chronic migraine without aura, not intractable, without status migrainosus (principal)
CPT/HCPCS: 64615

== ENCOUNTER → 2025-05-15 08:01 | Outpatient (BNVA) | payer MEDICARE, MEDICAID, SELFPAY | PROVIDERS: PCP Internal Medicine; Visit Provider Psychiatry & Neurology Neurology | DX: G43.709 Chronic migraine without aura, not intractable, without status migrainosus (principal) | CPT/HCPCS: 64615; 99211; J0585 ==